=== PATIENT | female | born 1950 | race Caucasian/White ===

== ENCOUNTER → 2018-05-29 | Day surgery (SDC) | payer MEDICARE ==
[2018-05-27 13:16] LABS: BASOPHILS # (AUTO) 0.1 (0.0-0.1); BASOPHILS % 0.8 % (0.0-1.0); EOSINOPHILS # (AUTO) 0.3 (0.0-0.4); EOSINOPHILS % 3.9 % (0.0-6.0); HEMATOCRIT 38.6 % (34.2-44.1); HEMOGLOBIN 12.7 g/dL (12.0-16.0); LYMPHOCYTES # (AUTO) 2.6 (1.0-3.2); LYMPHOCYTES % 31.4 % (18.0-39.1); MEAN CORPUSCULAR HEMOGLOBIN 34.6 pg (28-32); MEAN CORPUSCULAR HGB CONC 32.9 g/dL (31-35); MEAN CORPUSCULAR VOLUME 105.2 fL (81-99); MONOCYTES # (AUTO) 0.5 (0.2-0.8); MONOCYTES % 6.2 % (4.4-11.3); NEUTROPHILS # (AUTO) 4.8 (2.1-6.9); NEUTROPHILS % 57.2 % (38.7-80.0); PLATELET COUNT 185 x10e3/uL (140-360); RED BLOOD COUNT 3.67 x10e6/uL (3.6-5.1); RED CELL DISTRIBUTION WIDTH 13.3 % (11.7-14.4)
[~2018-05-29] MED LIST: AMLODIPINE BESYL5 MG PO; ATENOLOL50 MG PO; BYSTOLIC10 MG PO; FENTANYL CITRATE/PF 100MCG/2 ML INJ ONE; FOLIC ACID1 MG PO; GLYCOPYRROLATE INJ 1MG/ 5 ML SYR ONE; LEVOTHYROXINE112 MCG PO; LISINOPRIL-HCT1 EAC2 PO; LOVASTATIN10 MG PO; METHOTREXATE2.5 MG PO; MIDAZOLAM HCL 2 MG/2 ML VIAL ONE; PANTOPRAZOLE SO40 MG PO; PHENYLEPHRINE HCL 1% 10 MG/ML VIAL ONE; PROPOFOL IV EMULSION 10 MG/ML 20 ML VIAL ONE; SPIRONOLACTONE25 MG PO; XARELTO20 MG PO
[2018-05-29 09:35] VITALS: BP 115/67
== END | disposition home or self-care (01) ==
LOC: OR 06:15
PROVIDERS: ATTEND Internal Medicine Gastroenterology
DX: Z12.11 Encounter for screening for malignant neoplasm of colon (principal); D12.2 Benign neoplasm of ascending colon; K29.70 Gastritis, unspecified, without bleeding; K29.80 Duodenitis without bleeding; K52.9 Noninfective gastroenteritis and colitis, unspecified; K21.0 Gastro-esophageal reflux disease with esophagitis; K57.30 Diverticulosis of large intestine without perforation or abscess without bleeding; K64.4 Residual hemorrhoidal skin tags; Z71.3 Dietary counseling and surveillance; I10 Essential (primary) hypertension; E66.01 Morbid (severe) obesity due to excess calories; M06.9 Rheumatoid arthritis, unspecified; E78.6 Lipoprotein deficiency; E03.9 Hypothyroidism, unspecified; R60.9 Edema, unspecified; R00.1 Bradycardia, unspecified; Z88.0 Allergy status to penicillin; Z79.02 Long term (current) use of antithrombotics/antiplatelets; Z68.42 Body mass index [BMI] 45.0-49.9, adult; Z86.718 Personal history of other venous thrombosis and embolism
CPT/HCPCS: 36415; 43239; 45380; 45385; 85025; 88305; 88312; 93005; J2250; J2370; J3490

== ENCOUNTER 2019-06-16 19:03 | Emergency (ER) | payer MEDICARE ==
[~2019-06-16] VITALS: Ht 149.9 cm; Wt 96.2 kg
[~2019-06-16 19:03] MED LIST changes: -FENTANYL CITRATE/PF 100MCG/2 ML INJ ONE; -GLYCOPYRROLATE INJ 1MG/ 5 ML SYR ONE; -MIDAZOLAM HCL 2 MG/2 ML VIAL ONE; -PHENYLEPHRINE HCL 1% 10 MG/ML VIAL ONE; -PROPOFOL IV EMULSION 10 MG/ML 20 ML VIAL ONE
--- OUTSIDE RECORDS SUMMARY | 2019-06-16 19:07 | XMS REPORT | Continuity of Care Document ---
Author Author [place] Address Unknown Phone Unavailable Care Team Providers Care Service Delivery Management Consultant Name Role Phone [employer] Unavailable Unavailable Problems Problem Status Onset Date Classification Date Reported Comments Source ACUTE RENAL FAILURE, HYPERKALEMIA Active 01/30/[address] [facility] [address] SENT/ ABNORMAL LABS Active 01/30/2014 [facility] Hypertensive disorder, systemic arterial (disorder) Resolved Problem 02/04/2014 [facility] Lupus erythematosus (disorder) Resolved Problem 02/04/2014 [facility] RENAL FAILURE NOS Active [facility] Medications Medication Details Route Status Patient Instructions Ordering Provider Order Date Source Magnesium Sulfate 2 gm, 50 mL, Route: IVPB, Drug form: INJ, ONCE, Dosing Weight 101.591, kg, Start date: 02/01/14 12:52:00, Stop date: 02/01/14 12:52:00 Inactive 02/01/2014 [facility] Folic Acid 1 mg, 1 tab, Route: PO, Drug form: TAB, Daily, Dosing Weight 101.591, kg, Start date: 02/01/14 9:00:00, Duration: 30 day, Stop date: 03/02/14 9:00:00Notes: (Same as: Folvite) No Longer Active 02/01/2014 [facility] Celebrex 200 mg, 1 cap, Route: PO, Drug form: CAP, Daily, Dosing Weight 101.591, kg, Start date: 02/01/14 9:00:00, Duration: 30 day, Stop date: 03/02/14 9:00:00Notes: NSAID. Please check indication. Not for seizure. (Same As: CeleBREX) No Longer Active 02/01/2014 [facility] Thyroxine 125 microgram, 1 tab, Route: PO, Drug form: TAB, Daily, Dosing Weight 101.591, kg, Start date: 02/01/14 6:30:00, Duration: 30 day, Stop date: 03/02/14 6:30:00Notes: Take 1 hour before or 2 hours after meal; Enteral feeds may interefere with the absorption of this medication. (Same as:Levothroid) No Longer Active 02/01/2014 [facility] gabapentin 300 MG Oral Capsule 300 mg, 1 cap, Route: PO, Drug form: CAP, Bedtime, Dosing Weight 101.591, kg, Start date: 01/31/14 21:00:00, Duration: 30 day, Stop date: 03/01/14 21:00:00Notes: (Same as: Neurontin) No Longer Active 02/01/2014 [facility] Carisoprodol 350 mg, Route: PO, Drug form: TAB, Bedtime, Dosing Weight 101.591, kg, Start date: 01/31/14 21:00:00, Duration: 30 day, Stop date: 03/01/14 21:00:00 Inactive 02/01/2014 [facility] Robaxin 750 mg, 1 tab, Route: PO, Drug form: TAB, Bedtime, Start date: 01/31/14 21:00:00, Duration: 30 day, Stop date: 03/01/14 21:00:00Notes: (Same as:Robaxin) No Longer Active 02/01/2014 [facility] Atropine 0.5 mg, 5 mL, Route: IV, Drug form: INJ, PRN, Dosing Weight 101.591, kg, PRN Bradycardia, Start date: 01/31/14 19:18:00, Duration: 30 day, Stop date: 03/02/14 19:17:00, HR No Longer Active 02/01/2014 [facility] Nitroglycerin 0.4 mg, 1 tab, Route: SL, Drug form: TAB, Q5Min, Dosing Weight 101.591, kg, PRN Chest Pain, Start date: 01/31/14 19:17:00, Duration: 30 day, Stop date: 03/02/14 19:16:00Notes: (Same as:Nitroquick, Nitrostat) "Do Not Crush" Sublingual tablet No Longer Active 02/01/2014 [facility] pantoprazole 40 mg, 1 tab, Route: PO, Drug form: ECTAB, BID-Before Meals, Dosing Weight 101.591, kg, Start date: 01/31/14 16:30:00, Duration: 30 day, Stop date: 03/02/14 7:30:00Notes: Tablet should not be chewed or crushed. (Same as: Protonix) No Longer Active 01/31/2014 [facility] Saline Flush 0.9% 5 ml, Route: IVP, Drug Form: INJ, Dosing Weight 100, kg, PRN, PRN Line Flush, Start date: 01/30/14 20:59:00, Duration: 30 day, Stop date: 03/01/14 20:58:00Notes: (Same as: BD Posiflush) No Longer Active 01/31/2014 [facility] Acetaminophen 650 mg, 20.3 mL, Route: PO, Drug form: LIQ, Q4H, Dosing Weight 100, kg, PRN Pain 1-3/Temp > 100.4 F, Start date: 01/30/14 20:59:00, Duration: 30 day, Stop date: 03/01/14 20:58:00Notes: Max acetaminop xll=4039cs/day (4 gm/day). (Same as: Tylenol) No Longer Active 01/31/2014 [facility] Sodium Chloride 0.154 MEQ/ML Injectable Solution 1,000 mL, Rate: 100 ml/hr, Infuse over: 10 hr, Route: IV, Dosing Weight 100 kg, Total Volume: 1,000, Start date: 01/30/14 20:59:00, Duration: 30 day, Stop date: 03/01/14 20:58:00 No Longer Active 01/31/2014 [facility] Ondansetron 4 mg, 2 mL, Route: IVP, Drug form: INJ, Q8H, Dosing Weight 100, kg, PRN Nausea & Vomiting, Start date: 01/30/14 20:59:00, Duration: 30 day, Stop date: 03/01/14 20:58:00Notes: (Same as: Zofran) No Longer Active 01/31/2014 [facility] spironolactone 25 mg oral tablet 25 mg=1 tab, PO, Daily No Longer Active 01/31/2014 [facility] celecoxib 200 MG Oral Capsule [Celebrex] 200 mg=1 cap, PO, Daily Active 01/30/2014 [facility] gabapentin 300 MG Oral Capsule 300 mg=1 cap, PO, Bedtime Active 01/30/2014 [facility] levocetirizine 5 mg oral tablet 5 mg=1 tab, PO, QPM Active 01/30/2014 [facility] Calcium 600 +D oral tablet 1 tab, PO, BID Active 01/30/2014 [facility] Potassium Chloride 20 MEQ Extended Release Tablet 20 mEq=1 tab, PO, Q--- No Longer Active 01/30/2014 [facility] carisoprodol 350 mg oral tablet 350 mg=1 tab, PO, Bedtime Active 01/30/2014 [facility] lovastatin 20 mg oral tablet 20 mg=1 tab, PO, Bedtime Active 01/30/2014 [facility] Furosemide 40 MG Oral Tablet 40 mg=1 tab, PO, Q-- No Longer Active 01/30/2014 [facility] pantoprazole 40 mg oral enteric coated tablet 40 mg=1 tab, PO, BID Active 01/30/2014 [facility] Folic Acid 1 MG Oral Tablet 1 mg=1 tab, PO, Daily Active 01/30/2014 [facility] levothyroxine 125 mcg (0.125 mg) oral tablet 125 microgram=1 tab, PO, Daily Active 01/30/2014 [facility] Hydrochlorothiazide 12.5 MG / Lisinopril 20 MG Oral Tablet 2 tab, PO, Daily No Longer Active 01/30/2014 [facility] methotrexate 2.5 mg oral tablet 20 mg=8 tab, PO, QSun Active 01/30/2014 [facility] Sodium Bicarbonate 50 mEq, Route: IVP, ONCE, Dosing Weight 100, kg, Priority: STAT, Start date: 01/30/14 18:24:00, Stop date: 01/30/14 18:24:00 Inactive 01/30/2014 [facility] Insulin, Regular, Pork 10 unit, Route: IVP, ONCE, Dosing Weight 100, kg, Priority: STAT, Start date: 01/30/14 18:24:00, Stop date: 01/30/14 18:24:00 Inactive 01/30/2014 [facility] Dextrose 50% Syringe 50 mL, Route: IVP, Dosing Weight 100, kg, ONCE, STAT, Start date: 01/30/14 18:24:00, Stop date: 01/30/14 18:24:00 Inactive 01/30/2014 [facility] Calcium Gluconate 1 gm, Route: IVPB, ONCE, Dosing Weight 100, kg, Priority: STAT, Start date: 01/30/14 18:24:00, Stop date: 01/30/14 18:24:00 Inactive 01/30/2014 [facility] Sodium Chloride 0.154 MEQ/ML Injectable Solution 500 mL, 500 ml/hr, Infuse Over: 1 hr, Route: IV, ONCE, Priority: STAT, Dosing Weight 100 kg, Start date: 01/30/14 18:24:00, Duration: 1 doses or times, Stop date: 01/30/14 18:24:00 Inactive 01/30/2014 [facility] Saline Flush 0.9% 5 mL, Route: IVP, Drug Form: INJ, Dosing Weight 100, kg, PRN, PRN Line Flush, Start date: 01/30/14 18:24:00, Duration: 30 day, Stop date: 03/01/14 18:23:00Notes: Same as: BD Posiflush Sterile Inactive 01/30/2014 [facility] Sodium Chloride 0.154 MEQ/ML Injectable Solution 500 mL, 500 ml/hr, Infuse Over: 1 hr, Route: IV, 500, Drug form: INJ, ONCE, Priority: STAT, Dosing Weight 100 kg, Start date: 01/30/14 17:33:00, Duration: 1 doses or times, Stop date: 01/30/14 17:33:00 Inactive 01/30/2014 [facility] Allergies, Adverse Reactions, Alerts No Known Medication Allergies Immunizations No Data Provided for This Section Results Order Name Results Value Reference Range Date Interpretation Comments [facility] CHEM PANEL Magnesium Lvl 1.9 1.8 - 2.4 02/02/2014 [facility] CHEM PANEL BUN 19 7 - 22 02/02/2014 [facility] CHEM PANEL Glucose Lvl 102 70 - 99 02/02/2014 <sup>4</sup>Interpretive Data: Adult reference range values reflect the clinical guidelines
of the [place] [employer]. [facility] CHEM PANEL Creatinine Lvl 1.0 0.5 - 1.4 02/02/2014 [facility] CHEM PANEL Potassium Lvl 4.1 3.5 - 5.1 02/02/2014 [facility] CHEM PANEL Sodium Lvl 140 135 - 145 02/02/2014 [facility] CHEM PANEL Chloride Lvl 112 95 - 109 02/02/2014 [facility] CHEM PANEL CO2 20 24 - 32 02/02/2014 [facility] CHEM PANEL eGFR 61 02/02/2014 <sup>1</sup>Result Comment: The eGFR is calculated using the CKD-EPI formula. In most young, healthy individuals the eGFR will be >90 mL/min/1.73m2. The eGFR declines with age. An eGFR of 60-89 may be normal in some populations, particularly the elderly, for whom the CKD-EPI formula has not been extensively validated. Use of the eGFR is not recommended in the following populations:& lt;br/>
Individuals with unstable creatinine concentrations, including patients and those with serious co-morbid conditions.

Patients with extremes in muscle mass or diet.

The data above are obtained from the National Kidney Disease Education Program (NKDEP) which additionally recommends that when the eGFR is used in patients with extremes of body mass index for purposes of drug dosing, the eGFR should be multiplied by the estimated BMI. [facility] CHEM PANEL Calcium Lvl 8.2 8.5 - 10.5 02/02/2014 [facility] CHEM PANEL AGAP 12.1 10.0 - 20.0 02/02/2014 [facility] CHEM PANEL Magnesium Lvl 1.5 1.8 - 2.4 02/01/2014 [facility] CHEM PANEL eGFR 54 02/01/2014 <sup>2</sup>Result Comment: The eGFR is calculated using the CKD-EPI formula. In most young, healthy individuals the eGFR will be >90 mL/min/1.73m2. The eGFR declines with age. An eGFR of 60-89 may be normal in some populations, particularly the elderly, for whom the CKD-EPI formula has not been extensively validated. Use of the eGFR is not recommended in the following populations:& lt;br/>
Individuals with unstable creatinine concentrations, including patients and those with serious co-morbid conditions.

Patients with extremes in muscle mass or diet.

The data above are obtained from the National Kidney Disease Education Program (NKDEP) which additionally recommends that when the eGFR is used in patients with extremes of body mass index for purposes of drug dosing, the eGFR should be multiplied by the estimated BMI. [facility] CHEM PANEL AGAP 11.9 10.0 - 20.0 02/01/2014 [facility] CHEM PANEL Calcium Lvl 8.2 8.5 - 10.5 02/01/2014 [facility] CHEM PANEL Creatinine Lvl 1.1 0.5 - 1.4 02/01/2014 [facility] CHEM PANEL BUN 32 7 - 22 02/01/2014 [facility] CHEM PANEL Sodium Lvl 140 135 - 145 02/01/2014 [facility] CHEM PANEL Chloride Lvl 114 95 - 109 02/01/2014 [facility] CHEM PANEL CO2 19 24 - 32 02/01/2014 [facility] CHEM PANEL Glucose Lvl 98 70 - 99 02/01/2014 <sup>5</sup>Interpretive Data: Adult reference range values reflect the clinical guidelines
of the [place] [employer]. [facility] CHEM PANEL Potassium Lvl 4.9 3.5 - 5.1 02/01/2014 [facility] HEMATOLOGY Monocytes 5.5 2.0 - 12.0 02/01/2014 [facility] HEMATOLOGY Lymphocytes 24.3 20.0 - 40.0 02/01/2014 [facility] HEMATOLOGY Eosinophils 5.5 0.0 - 4.0 02/01/2014 [facility] HEMATOLOGY Basophils 1.4 0.0 - 1.0 02/01/2014 [facility] HEMATOLOGY Lymphocytes # 1.4 1.0 - 5.5 02/01/2014 [facility] HEMATOLOGY Segs-Bands # 3.6 1.5 - 8.1 02/01/2014 [facility] HEMATOLOGY Monocytes # 0.3 0.0 - 0.8 02/01/2014 [facility] HEMATOLOGY Basophils # 0.1 0.0 - 0.2 02/01/2014 [facility] HEMATOLOGY Eosinophils # 0.3 0.0 - 0.5 02/01/2014 [facility] HEMATOLOGY Segs 63.3 45.0 - 75.0 02/01/2014 [facility] HEMATOLOGY WBC 5.7 3.7 - 10.4 02/01/2014 [facility] HEMATOLOGY RBC 2.95 4.20 - 5.40 02/01/2014 [facility] HEMATOLOGY Hgb 10.1 12.0 - 16.0 02/01/2014 [facility] HEMATOLOGY MCV 101.3 81.0 - 99.0 02/01/2014 [facility] HEMATOLOGY MCH 34.2 27.0 - 31.0 02/01/2014 [facility] HEMATOLOGY Hct 29.8 36.0 - 48.0 02/01/2014 [facility] MCHC 33.8 32.0 - 36.0 02/01/2014 [facility] HEMATOLOGY RDW 14.0 11.5 - 14.5 02/01/2014 [facility] HEMATOLOGY MPV 9.3 7.4 - 10.4 02/01/2014 [facility] HEMATOLOGY Platelet 122 133 - 450 02/01/2014 [facility] THYROID PANEL TSH 0.090 0.360 - 3.740 02/01/2014 [facility] CHEM PANEL Phosphorus 4.6 2.5 - 4.5 01/31/2014 [facility] CHEM PANEL Magnesium Lvl 1.8 1.8 - 2.4 01/31/2014 [facility] CHEM PANEL Creatinine Lvl 1.5 0.5 - 1.4 01/31/2014 [facility] CHEM PANEL Sodium Lvl 142 135 - 145 01/31/2014 [facility] CHEM PANEL Potassium Lvl 5.5 3.5 - 5.1 01/31/2014 [facility] CHEM PANEL Chloride Lvl 114 95 - 109 01/31/2014 [facility] CHEM PANEL CO2 17 24 - 32 01/31/2014 [facility] CHEM PANEL Glucose Lvl 104 70 - 99 01/31/2014 <sup>6</sup>Interpretive Data: Adult reference range values reflect the clinical guidelines
of the [place] [employer]. [facility] CHEM PANEL BUN 52 7 - 22 01/31/2014 [facility] CHEM PANEL Calcium Lvl 8.8 8.5 - 10.5 01/31/2014 [facility] CHEM PANEL eGFR 37 01/31/2014 <sup>3</sup>Result Comment: The eGFR is calculated using the CKD-EPI formula. In most young, healthy individuals the eGFR will be >90 mL/min/1.73m2. The eGFR declines with age. An eGFR of 60-89 may be normal in some populations, particularly the elderly, for whom the CKD-EPI formula has not been extensively validated. Use of the eGFR is not recommended in the following populations:& lt;br/>
Individuals with unstable creatinine concentrations, including patients and those with serious co-morbid conditions.

Patients with extremes in muscle mass or diet.

The data above are obtained from the National Kid[employer] Disease Education Program (NKDEP) which additionally recommends that when the eGFR is used in patients with extremes of body mass index for purposes of drug dosing, the eGFR should be multiplied by the estimated BMI. [facility] CHEM PANEL AGAP 16.5 10.0 - 20.0 01/31/2014 [facility] HEMATOLOGY MCV 103.7 81.0 - 99.0 01/31/2014 [facility] HEMATOLOGY Hct 33.2 36.0 - 48.0 01/31/2014 [facility] MCHC 33.4 32.0 - 36.0 01/31/2014 [facility] MCH 34.7 27.0 - 31.0 01/31/2014 [facility] HEMATOLOGY RBC 3.21 4.20 - 5.40 01/31/2014 [facility] HEMATOLOGY Hgb 11.1 12.0 - 16.0 01/31/2014 [facility] HEMATOLOGY WBC 6.1 3.7 - 10.4 01/31/2014 [facility] HEMATOLOGY MPV 8.7 7.4 - 10.4 01/31/2014 [facility] HEMATOLOGY Platelet 178 133 - 450 01/31/2014 [facility] HEMATOLOGY RDW 14.7 11.5 - 14.5 01/31/2014 [facility] HEMATOLOGY Lymphocytes 26.2 20.0 - 40.0 01/31/2014 [facility] HEMATOLOGY Segs 62.9 45.0 - 75.0 01/31/2014 [facility] HEMATOLOGY Monocytes 5.8 2.0 - 12.0 01/31/2014 [facility] HEMATOLOGY Basophils 0.8 0.0 - 1.0 01/31/2014 [facility] HEMATOLOGY Eosinophils 4.3 0.0 - 4.0 01/31/2014 [facility] HEMATOLOGY Monocytes # 0.4 0.0 - 0.8 01/31/2014 [facility] HEMATOLOGY Lymphocytes # 1.6 1.0 - 5.5 01/31/2014 [facility] HEMATOLOGY Segs-Bands # 3.8 1.5 - 8.1 01/31/2014 [facility] HEMATOLOGY Eosinophils # 0.3 0.0 - 0.5 01/31/2014 [facility] HEMATOLOGY Basophils # 0.0 0.0 - 0.2 01/31/2014 [facility] URINE AND STOOL UA Urobilinogen <=1.0 mg/dL 0.1 - 1.0 01/31/2014 [facility] URINE AND STOOL UA Color Ltyellow 01/31/2014 [facility] URINE AND STOOL UA WBC 2 0 - 5 01/31/2014 [facility] URINE AND STOOL UA Sq Epi Occasional /LPF Few /LPF 01/31/2014 [facility] URINE AND STOOL UA Bacteria Occasional /HPF None Seen /HPF 01/31/2014 [facility] URINE AND STOOL UA RBC 1 0 - 2 01/31/2014 [facility] URINE AND STOOL UA Bili Negative *NA* (01/30/14 7:15 PM) Negative 01/31/2014 [facility] URINE AND STOOL UA Blood Negative (01/30/14 7:15 PM) Negative 01/31/2014 [facility] URINE AND STOOL UA Nitrite Negative (01/30/14 7:15 PM) Negative 01/31/2014 [facility] URINE AND STOOL UA Leuk Est Trace *ABN* (01/30/14 7:15 PM) Negative 01/31/2014 [facility] URINE AND STOOL UA Turbidity Clear (01/30/14 7:15 PM) Clear 01/31/2014 [facility] URINE AND STOOL UA pH 5.0 5.0 - 8.0 01/31/2014 [facility] URINE AND STOOL UA Spec Grav 1.014 <=1.030 01/31/2014 [facility] URINE AND STOOL UA Protein Negative mg/dL Negative mg/dL 01/31/2014 [facility] URINE AND STOOL UA Glucose 50 mg/dL Negative mg/dL 01/31/2014 [facility] URINE AND STOOL UA Ketones Negative mg/dL Negative mg/dL 01/31/2014 [facility] CHEM PANEL Bili Total 0.2 0.2 - 1.3 01/30/2014 [facility] CHEM PANEL AST 14 0 - 37 01/30/2014 [facility] CHEM PANEL ALT 23 0 - 65 01/30/2014 [facility] CHEM PANEL Alk Phos 75 39 - 136 01/30/2014 [facility] CHEM PANEL Total Protein 7.7 6.4 - 8.4 01/30/2014 [facility] CHEM PANEL Albumin Lvl 3.7 3.5 - 5.0 01/30/2014 [facility] CHEM PANEL A/G Ratio 0.9 0.7 - 1.6 01/30/2014 [facility] CHEM PANEL Globulin 4.0 2.0 - 4.0 01/30/2014 [facility] CHEM PANEL B/C Ratio 29 6 - 25 01/30/2014 [facility] HEMATOLOGY Basophils 0.7 0.0 - 1.0 01/30/2014 [facility] HEMATOLOGY Segs-Bands # 5.2 1.5 - 8.1 01/30/2014 [facility] HEMATOLOGY Basophils # 0.1 0.0 - 0.2 01/30/2014 [facility] HEMATOLOGY Eosinophils 5.4 0.0 - 4.0 01/30/2014 [facility] HEMATOLOGY Lymphocytes # 1.7 1.0 - 5.5 01/30/2014 [facility] HEMATOLOGY Monocytes # 0.5 0.0 - 0.8 01/30/2014 [facility] HEMATOLOGY Eosinophils # 0.4 0.0 - 0.5 01/30/2014 [facility] HEMATOLOGY Segs 66.1 45.0 - 75.0 01/30/2014 [facility] HEMATOLOGY Monocytes 6.3 2.0 - 12.0 01/30/2014 [facility] HEMATOLOGY Lymphocytes 21.5 20.0 - 40.0 01/30/2014 [facility] HEMATOLOGY MCH 34.0 27.0 - 31.0 01/30/2014 [facility] HEMATOLOGY MCHC 33.6 32.0 - 36.0 01/30/2014 [facility] HEMATOLOGY MCV 101.0 81.0 - 99.0 01/30/2014 [facility] HEMATOLOGY Hgb 12.1 12.0 - 16.0 01/30/2014 [facility] Hct 36.1 36.0 - 48.0 01/30/2014 [facility] HEMATOLOGY MPV 8.7 7.4 - 10.4 01/30/2014 [facility] HEMATOLOGY Platelet 266 133 - 450 01/30/2014 [facility] HEMATOLOGY RDW 14.1 11.5 - 14.5 01/30/2014 [facility] HEMATOLOGY WBC 7.8 3.7 - 10.4 01/30/2014 [facility] RBC 3.57 4.20 - 5.40 01/30/2014 [facility] Pathology Reports No Data Provided for This Section Diagnostic Reports No Data Provided for This Section Consultation Notes No Data Provided for This Section Discharge Summaries No Data Provided for This Section History and Physicals No Data Provided for This Section Vital Signs Vital Sign Value Date Comments Source Diastolic (mm Hg) 81 02/02/2014 [facility] Systolic (mm Hg) 162 02/02/2014 [facility] Respitory Rate 18 02/02/2014 [facility] Heart Rate 79 02/02/2014 [facility] Temperature Oral (F) 98.2 F 02/02/2014 [facility] Temperature Oral (F) 98.3 F 02/02/2014 [facility] Heart Rate 74 02/02/2014 [facility] Respitory Rate 17 02/02/2014 [facility] Systolic (mm Hg) 137 02/02/2014 [facility] Diastolic (mm Hg) 65 02/02/2014 [facility] Respitory Rate 18 02/02/2014 [facility] Systolic (mm Hg) 120 02/02/2014 [facility] Heart Rate 66 02/02/2014 [facility] Diastolic (mm Hg) 64 02/02/2014 [facility] Temperature Oral (F) 98.8 F 02/02/2014 [facility] Height 147.32 cm 01/31/2014 [facility] Weight 101.591 01/31/2014 [facility] BMI Calculated 46.81 01/31/2014 [facility] Weight 100 01/30/2014 [facility] Height 147.32 cm 01/30/2014 [facility] BMI Calculated 46.08 01/30/2014 [facility] Encounters Location Location Details Encounter Type Encounter Number Reason For Visit Attending Provider ADM Date DC Date Status Source [facility] Inpatient [id number] Bola Lewism 01/30/2014 02/02/2014 [facility] Procedures No Data Provided for This Section Assessment and Plan No Data Provided for This Section Plan of Care No Data Provided for This Section Social History Social History Date Source Social History TypeResponse Alcohol Use: Never Smoking Status Light tobacco smoker, Exposure to Tobacco Smoke None, Cigarette Smoking Last 365 Days No, Reg Smoking Cessation Counseling No 01/31/2014 [facility] Family History No Data Provided for This Section Advance Directives No Data Provided for This Section Functional Status No Data Provided for This Section
--- OUTSIDE RECORDS SUMMARY | 2019-06-16 19:07 | XMS REPORT | Summary of Care ---
Author Organization Unknown Address Unknown Phone Unavailable Encounter HQ Elise(NILSON) [id number] Date(s): 01/30/14 - 02/02/14 [facility] [address] [address] Discharge Disposition: Home Physician Attending: Bola Waldron MD Physician Admitting: Bola Waldron MD Reason for Visit ACUTE RENAL FAILURE, HYPERKALEMIA Vital Signs 1 2 3 Most recent to oldest [Reference Range]: 147.32 cm (01/30/14 9:00 PM) 147.32 cm (01/30/14 3:06 PM) Height 98.2 DegF (02/02/14 11:10 AM) 98.3 DegF (02/02/14 7:11 AM) 98.8 DegF (02/02/14 5:21 AM) Temperature Oral [96.4-99.1 DegF] 162 mmHg *HI* (02/02/14 11:10 AM) 137 mmHg (02/02/14 7:11 AM) 120 mmHg (02/02/14 5:21 AM) Systolic Blood Pressure [90-140 mmHg] 81 mmHg (02/02/14 11:10 AM) 65 mmHg (02/02/14 7:11 AM) 64 mmHg (02/02/14 5:21 AM) Diastolic Blood Pressure [60-90 mmHg] 18 BRMIN (02/02/14 11:10 AM) 17 BRMIN (02/02/14 7:11 AM) 18 BRMIN (02/02/14 5:21 AM) Respiratory Rate [14-20 BRMIN] 79 bpm (02/02/14 11:10 AM) 74 bpm (02/02/14 7:11 AM) 66 bpm (02/02/14 5:21 AM) Peripheral Pulse Rate [60-100 bpm] 101.591 kg (01/30/14 9:00 PM) 100 kg (01/30/14 3:06 PM) Weight 46.81 m2 (01/30/14 9:00 PM) 46.08 m2 (01/30/14 3:06 PM) Body Mass Index Problem List Condition Effective Dates Status Health Status Informant Hypertension(Confirm Resolved ed) Lupus(Confirmed) Resolved Allergies, Adverse Reactions, Alerts Substance Reaction Severity Status NKDA Active Medications acetaminophen 650 mg, 20.3 mL, Route: PO, Drug form: LIQ, Q4H, Dosing Weight 100, kg, PRN Pain 1-3/Temp > 100.4 F, Start date: 01/30/14 20:59:00, Duration: 30 day, Stop date: 03/01/14 20:58:00 Notes: Max ndlpfmxievhrb=7834xz/day (4 gm/day). (Same as: Tylenol) Start Date: 01/30/14 Stop Date: 02/02/14 Status: Discontinued atropine 0.5 mg, 5 mL, Route: IV, Drug form: INJ, PRN, Dosing Weight 101.591, kg, PRN Bra dycardia, Start date: 01/31/14 19:18:00, Duration: 30 day, Stop date: 03/02/14 1 9:17:00, HR <40 Start Date: 01/31/14 Stop Date: 02/02/14 Status: Discontinued Calcium 600 +D oral tablet 1 tab, PO, BID Start Date: 01/30/14 Status: Ordered calcium gluconate 1 gm, Route: IVPB, ONCE, Dosing Weight 100, kg, Priority: STAT, Start date: 01/07 02/18 18:24:00, Stop date: 01/30/14 18:24:00 Start Date: 01/30/14 Stop Date: 01/30/14 Status: Completed carisoprodol 350 mg, Route: PO, Drug form: TAB, Bedtime, Dosing Weight 101.591, kg, Start roya e: 01/31/14 21:00:00, Duration: 30 day, Stop date: 03/01/14 21:00:00 Start Date: 01/31/14 Stop Date: 01/31/14 Status: Deleted carisoprodol 350 mg oral tablet 350 mg=1 tab, PO, Bedtime Start Date: 01/30/14 Status: Ordered CeleBREX 200 mg, 1 cap, Route: PO, Drug form: CAP, Daily, Dosing Weight 101.591, kg, Star t date: 02/01/14 9:00:00, Duration: 30 day, Stop date: 03/02/14 9:00:00 Notes: NSAID. Please check indication. Not for seizure. (Same As: CeleBREX) Start Date: 02/01/14 Stop Date: 02/02/14 Status: Discontinued CeleBREX 200 mg oral capsule 200 mg=1 cap, PO, Daily Start Date: 01/30/14 Status: Ordered Dextrose 50% Syringe 50 mL, Route: IVP, Dosing Weight 100, kg, ONCE, STAT, Start date: 01/30/14 18:24 :00, Stop date: 01/30/14 18:24:00 Start Date: 01/30/14 Stop Date: 01/30/14 Status: Completed folic acid 1 mg, 1 tab, Route: PO, Drug form: TAB, Daily, Dosing Weight 101.591, kg, Start date: 02/01/14 9:00:00, Duration: 30 day, Stop date: 03/02/14 9:00:00 Notes: (Same as: Folvite) Start Date: 02/01/14 Stop Date: 02/02/14 Status: Discontinued folic acid 1 mg oral tablet 1 mg=1 tab, PO, Daily Start Date: 01/30/14 Status: Ordered furosemide 40 mg oral tablet 40 mg=1 tab, PO, Q-M-W-F Start Date: 01/30/14 Stop Date: 02/02/14 Status: Discontinued gabapentin 300 mg oral capsule 300 mg=1 cap, PO, Bedtime Start Date: 01/30/14 Status: Ordered gabapentin 300 mg oral capsule 300 mg, 1 cap, Route: PO, Drug form: CAP, Bedtime, Dosing Weight 101.591, kg, St art date: 01/31/14 21:00:00, Duration: 30 day, Stop date: 03/01/14 21:00:00 Notes: (Same as: Neurontin) Start Date: 01/31/14 Stop Date: 02/02/14 Status: Discontinued hydrochlorothiazide-lisinopril 12.5 mg-20 mg oral tablet 2 tab, PO, Daily Start Date: 01/30/14 Stop Date: 02/02/14 Status: Discontinued Insulin regular 10 unit, Route: IVP, ONCE, Dosing Weight 100, kg, Priority: STAT, Start date: 18:24:00, Stop date: 01/30/14 18:24:00 Start Date: 01/30/14 Stop Date: 01/30/14 Status: Completed levocetirizine 5 mg oral tablet 5 mg=1 tab, PO, QPM Start Date: 01/30/14 Status: Ordered levothyroxine 125 microgram, 1 tab, Route: PO, Drug form: TAB, Daily, Dosing Weight 101.591, k g, Start date: 02/01/14 6:30:00, Duration: 30 day, Stop date: 03/02/14 6:30:00 Notes: Take 1 hour before or 2 hours after meal; Enteral feeds may interefere wi th the absorption of this medication. (Same as:Levothroid) Start Date: 02/01/14 Stop Date: 02/02/14 Status: Discontinued levothyroxine 125 mcg (0.125 mg) oral tablet 125 microgram=1 tab, PO, Daily Start Date: 01/30/14 Status: Ordered lovastatin 20 mg oral tablet 20 mg=1 tab, PO, Bedtime Start Date: 01/30/14 Status: Ordered magnesium sulfate 2 gm, 50 mL, Route: IVPB, Drug form: INJ, ONCE, Dosing Weight 101.591, kg, Start date: 02/01/14 12:52:00, Stop date: 02/01/14 12:52:00 Start Date: 02/01/14 Stop Date: 02/01/14 Status: Completed methotrexate 2.5 mg oral tablet 20 mg=8 tab, PO, QSun Start Date: 01/30/14 Status: Ordered nitroglycerin 0.4 mg, 1 tab, Route: SL, Drug form: TAB, Q5Min, Dosing Weight 101.591, kg, PRN Chest Pain, Start date: 01/31/14 19:17:00, Duration: 30 day, Stop date: 03/02/14 19:16:00 Notes: (Same as:Nitroquick, Nitrostat)"Do Not Crush" Sublingual tablet Start Date: 01/31/14 Stop Date: 02/02/14 Status: Discontinued ondansetron 4 mg, 2 mL, Route: IVP, Drug form: INJ, Q8H, Dosing Weight 100, kg, PRN Nausea & Vomiting, Start date: 01/30/14 20:59:00, Duration: 30 day, Stop date: 03/01/14 20:58:00 Notes: (Same as: Zofran) Start Date: 01/30/14 Stop Date: 02/02/14 Status: Discontinued pantoprazole 40 mg, 1 tab, Route: PO, Drug form: ECTAB, BID-Before Meals, Dosing Weight 101.5 91, kg, Start date: 01/31/14 16:30:00, Duration: 30 day, Stop date: 03/02/14 7:3 0:00 Notes: Tablet should not be chewed or crushed.(Same as: Protonix) Start Date: 01/31/14 Stop Date: 02/02/14 Status: Discontinued pantoprazole 40 mg oral enteric coated tablet 40 mg=1 tab, PO, BID Start Date: 01/30/14 Status: Ordered potassium chloride 20 mEq oral tablet, extended release 20 mEq=1 tab, PO, Q-M-W-F Start Date: 01/30/14 Stop Date: 02/02/14 Status: Discontinued Robaxin 750 mg, 1 tab, Route: PO, Drug form: TAB, Bedtime, Start date: 01/31/14 21:00:00 , Duration: 30 day, Stop date: 03/01/14 21:00:00 Notes: (Same as:Robaxin) Start Date: 01/31/14 Stop Date: 02/02/14 Status: Discontinued Saline Flush 0.9% 5 mL, Route: IVP, Drug Form: INJ, Dosing Weight 100, kg, PRN, PRN Line Flush, St art date: 01/30/14 18:24:00, Duration: 30 day, Stop date: 03/01/14 18:23:00 Notes: Same as: BD Posiflush Sterile Start Date: 01/30/14 Stop Date: 01/30/14 Status: Discontinued Saline Flush 0.9% 5 ml, Route: IVP, Drug Form: INJ, Dosing Weight 100, kg, PRN, PRN Line Flush, St art date: 01/30/14 20:59:00, Duration: 30 day, Stop date: 03/01/14 20:58:00 Notes: (Same as: BD Posiflush) Start Date: 01/30/14 Stop Date: 02/02/14 Status: Discontinued sodium bicarbonate 50 mEq, Route: IVP, ONCE, Dosing Weight 100, kg, Priority: STAT, Start date: 18:24:00, Stop date: 01/30/14 18:24:00 Start Date: 01/30/14 Stop Date: 01/30/14 Status: Completed Sodium Chloride 0.9% (Bolus) IV - - 500 mL, 500 ml/hr, Infuse Over: 1 hr, Route: IV, 500, Drug form: INJ, ONCE, Prio rity: STAT, Dosing Weight 100 kg, Start date: 01/30/14 17:33:00, Duration: 1 dos es or times, Stop date: 01/30/14 17:33:00 Start Date: 01/30/14 Stop Date: 01/30/14 Status: Completed Sodium Chloride 0.9% IV (Sodium Chloride 0.9% (Bolus) IV - -) 500 mL, 500 ml/hr, Infuse Over: 1 hr, Route: IV, ONCE, Priority: STAT, Dosing We ight 100 kg, Start date: 01/30/14 18:24:00, Duration: 1 doses or times, Stop roya e: 01/30/14 18:24:00 Start Date: 01/30/14 Stop Date: 01/30/14 Status: Completed Sodium Chloride 0.9% IV 1,000 mL 1,000 mL, Rate: 100 ml/hr, Infuse over: 10 hr, Route: IV, Dosing Weight 100 kg, Total Volume: 1,000, Start date: 01/30/14 20:59:00, Duration: 30 day, Stop date: 03/01/14 20:58:00 Start Date: 01/30/14 Stop Date: 02/02/14 Status: Discontinued spironolactone 25 mg oral tablet 25 mg=1 tab, PO, Daily Start Date: 01/30/14 Stop Date: 02/02/14 Status: Discontinued Results ELECTROLYTES 1 2 3 Most recent to oldest [Reference Range]: 140 mEq/L (02/02/14 4:55 AM) 140 mEq/L (02/01/14 4:34 AM) 142 mEq/L (01/31/14 5:32 AM) Sodium Lvl [135-145 mEq/L] 4.1 mEq/L (02/02/14 4:55 AM) 4.9 mEq/L (02/01/14 4:34 AM) 5.5 mEq/L *HI* (01/31/14 5:32 AM) Potassium Lvl [3.5-5.1 mEq/L] 112 mEq/L *HI* (02/02/14 4:55 AM) 114 mEq/L *HI* (02/01/14 4:34 AM) 114 mEq/L *HI* (01/31/14 5:32 AM) Chloride Lvl [95-109 mEq/L] 20 mEq/L *LOW* (02/02/14 4:55 AM) 19 mEq/L *LOW* (02/01/14 4:34 AM) 17 mEq/L *LOW* (01/31/14 5:32 AM) CO2 [24-32 mEq/L] 12.1 mEq/L (02/02/14 4:55 AM) 11.9 mEq/L (02/01/14 4:34 AM) 16.5 mEq/L (01/31/14 5:32 AM) AGAP [10.0-20.0 mEq/L] CHEM PANEL 1 2 3 Most recent to oldest [Reference Range]: 1.0 mg/dL (02/02/14 4:55 AM) 1.1 mg/dL (02/01/14 4:34 AM) 1.5 mg/dL *HI* (01/31/14 5:32 AM) Creatinine Lvl [0.5-1.4 mg/dL] 61 mL/min/1.73m2 1 *NA* (02/02/14 4:55 AM) 54 mL/min/1.73m2 2 *NA* (02/01/14 4:34 AM) 37 mL/min/1.73m2 3 *NA* (01/31/14 5:32 AM) eGFR 19 mg/dL (02/02/14 4:55 AM) 32 mg/dL *HI* (02/01/14 4:34 AM) 52 mg/dL *HI* (01/31/14 5:32 AM) BUN [7-22 mg/dL] 29 *HI* (01/30/14 3:56 PM) B/C Ratio [6-25] 102 mg/dL 4 *HI* (02/02/14 4:55 AM) 98 mg/dL 5 (02/01/14 4:34 AM) 104 mg/dL 6 *HI* (01/31/14 5:32 AM) Glucose Lvl [70-99 mg/dL] 7.7 g/dL (01/30/14 3:56 PM) Total Protein [6.4-8.4 g/dL] 3.7 g/dL (01/30/14 3:56 PM) Albumin Lvl [3.5-5.0 g/dL] 4.0 g/dL (01/30/14 3:56 PM) Globulin [2.0-4.0 g/dL] 0.9 (01/30/14 3:56 PM) A/G Ratio [0.7-1.6] 8.2 mg/dL *LOW* (02/02/14 4:55 AM) 8.2 mg/dL *LOW* (02/01/14 4:34 AM) 8.8 mg/dL (01/31/14 5:32 AM) Calcium Lvl [8.5-10.5 mg/dL] 4.6 mg/dL *HI* (01/31/14 5:32 AM) Phosphorus [2.5-4.5 mg/dL] 1.9 mg/dL (02/02/14 4:55 AM) 1.5 mg/dL *LOW* (02/01/14 4:34 AM) 1.8 mg/dL (01/31/14 5:32 AM) Magnesium Lvl [1.8-2.4 mg/dL] 23 unit/L (01/30/14 3:56 PM) ALT [0-65 unit/L] 14 unit/L (01/30/14 3:56 PM) AST [0-37 unit/L] 75 unit/L (01/30/14 3:56 PM) Alk Phos [39-136 unit/L] 0.2 mg/dL (01/30/14 3:56 PM) Bili Total [0.2-1.3 mg/dL] 1Result Comment: The eGFR is calculated using the CKD-EPI formula. In most young, healthy individuals the eGFR will be >90 mL/min/1.73m2. The eGFR declines with age. An eGFR of 60-89 may be normal in some populations, particularly the elderly, for whom the CKD-EPI formula has not been extensively validated. Use of the eGFR is not recommended in the following populations: Individuals with unstable creatinine concentrations, including patients and those with serious co-morbid conditions. Patients with extremes in muscle mass or diet. The data above are obtained from the National Kidney Disease Education Program ( NKDEP) which additionally recommends that when the eGFR is used in patients with extremes of body mass index for purposes of drug dosing, the eGFR should be mul tiplied by the estimated BMI. 2Result Comment: The eGFR is calculated using the CKD-EPI formula. In most young, healthy individuals the eGFR will be >90 mL/min/1.73m2. The eGFR declines with age. An eGFR of 60-89 may be normal in some populations, particularly the elderly, for whom the CKD-EPI formula has not been extensively validated. Use of the eGFR is not recommended in the following populations: Individuals with unstable creatinine concentrations, including patients and those with serious co-morbid conditions. Patients with extremes in muscle mass or diet. The data above are obtained from the National Kidney Disease Education Program ( NKDEP) which additionally recommends that when the eGFR is used in patients with extremes of body mass index for purposes of drug dosing, the eGFR should be mul tiplied by the estimated BMI. 3Result Comment: The eGFR is calculated using the CKD-EPI formula. In most young, healthy individuals the eGFR will be >90 mL/min/1.73m2. The eGFR declines with age. An eGFR of 60-89 may be normal in some populations, particularly the elderly, for whom the CKD-EPI formula has not been extensively validated. Use of the eGFR is not recommended in the following populations: Individuals with unstable creatinine concentrations, including patients and those with serious co-morbid conditions. Patients with extremes in muscle mass or diet. The data above are obtained from the National Kidney Disease Education Program ( NKDEP) which additionally recommends that when the eGFR is used in patients with extremes of body mass index for purposes of drug dosing, the eGFR should be mul tiplied by the estimated BMI. 4Interpretive Data: Adult reference range values reflect the clinical guidelines of the [place] [employer]. 5Interpretive Data: Adult reference range values reflect the clinical guidelines of the [place] [employer]. 6Interpretive Data: Adult reference range values reflect the clinical guidelines of the [place] [employer]. THYROID PANEL 1 2 3 Most recent to oldest [Reference Range]: 0.090 uIU/mL *LOW* (02/01/14 4:34 AM) TSH [0.360-3.740 uIU/mL] URINE AND STOOL 1 2 3 Most recent to oldest [Reference Range]: Clear (01/30/14 7:15 PM) UA Turbidity [Clear] Ltyellow *NA* (01/30/14 7:15 PM) UA Color 5.0 (01/30/14 7:15 PM) UA pH [5.0-8.0] 1.014 (01/30/14 7:15 PM) UA Spec Grav [<=1.030] 50 mg/dL *ABN* (01/30/14 7:15 PM) UA Glucose [Negative mg/dL] Negative (01/30/14 7:15 PM) UA Blood [Negative] Negative mg/dL *NA* (01/30/14 7:15 PM) UA Ketones [Negative mg/dL] Negative mg/dL (01/30/14 7:15 PM) UA Protein [Negative mg/dL] <=1.0 mg/dL *NA* (01/30/14 7:15 PM) UA Urobilinogen [0.1-1.0 mg/dL] Negative *NA* (01/30/14 7:15 PM) UA Bili [Negative] Trace *ABN* (01/30/14 7:15 PM) UA Leuk Est [Negative] Negative (01/30/14 7:15 PM) UA Nitrite [Negative] 2 /HPF (01/30/14 7:15 PM) UA WBC [0-5 /HPF] 1 /HPF (01/30/14 7:15 PM) UA RBC [0-2 /HPF] Occasional /HPF *NA* (01/30/14 7:15 PM) UA Bacteria [None Seen /HPF] Occasional /LPF *NA* (01/30/14 7:15 PM) UA Sq Epi [Few /LPF] HEMATOLOGY 1 2 3 Most recent to oldest [Reference Range]: 5.7 K/CMM (02/01/14 4:34 AM) 6.1 K/CMM (01/31/14 5:32 AM) 7.8 K/CMM (01/30/14 3:56 PM) WBC [3.7-10.4 K/CMM] 2.95 M/CMM *LOW* (02/01/14 4:34 AM) 3.21 M/CMM *LOW* (01/31/14 5:32 AM) 3.57 M/CMM *LOW* (01/30/14 3:56 PM) RBC [4.20-5.40 M/CMM] 10.1 g/dL *LOW* (02/01/14 4:34 AM) 11.1 g/dL *LOW* (01/31/14 5:32 AM) 12.1 g/dL (01/30/14 3:56 PM) Hgb [12.0-16.0 g/dL] 29.8 % *LOW* (02/01/14 4:34 AM) 33.2 % *LOW* (01/31/14 5:32 AM) 36.1 % (01/30/14 3:56 PM) Hct [36.0-48.0 %] 101.3 fL *HI* (02/01/14 4:34 AM) 103.7 fL *HI* (01/31/14 5:32 AM) 101.0 fL *HI* (01/30/14 3:56 PM) MCV [81.0-99.0 fL] 34.2 pg *HI* (02/01/14 4:34 AM) 34.7 pg *HI* (01/31/14 5:32 AM) 34.0 pg *HI* (01/30/14 3:56 PM) MCH [27.0-31.0 pg] 33.8 g/dL (02/01/14 4:34 AM) 33.4 g/dL (01/31/14 5:32 AM) 33.6 g/dL (01/30/14 3:56 PM) MCHC [32.0-36.0 g/dL] 14.0 % (02/01/14 4:34 AM) 14.7 % *HI* (01/31/14 5:32 AM) 14.1 % (01/30/14 3:56 PM) RDW [11.5-14.5 %] 122 K/CMM *LOW* (02/01/14 4:34 AM) 178 K/CMM (01/31/14 5:32 AM) 266 K/CMM (01/30/14 3:56 PM) Platelet [133-450 K/CMM] 9.3 fL (02/01/14 4:34 AM) 8.7 fL (01/31/14 5:32 AM) 8.7 fL (01/30/14 3:56 PM) MPV [7.4-10.4 fL] 63.3 % (02/01/14 4:34 AM) 62.9 % (01/31/14 5:32 AM) 66.1 % (01/30/14 3:56 PM) Segs [45.0-75.0 %] 24.3 % (02/01/14 4:34 AM) 26.2 % (01/31/14 5:32 AM) 21.5 % (01/30/14 3:56 PM) Lymphocytes [20.0-40.0 %] 5.5 % (02/01/14 4:34 AM) 5.8 % (01/31/14 5:32 AM) 6.3 % (01/30/14 3:56 PM) Monocytes [2.0-12.0 %] 5.5 % *HI* (02/01/14 4:34 AM) 4.3 % *HI* (01/31/14 5:32 AM) 5.4 % *HI* (01/30/14 3:56 PM) Eosinophils [0.0-4.0 %] 1.4 % *HI* (02/01/14 4:34 AM) 0.8 % (01/31/14 5:32 AM) 0.7 % (01/30/14 3:56 PM) Basophils [0.0-1.0 %] 3.6 K/CMM (02/01/14 4:34 AM) 3.8 K/CMM (01/31/14 5:32 AM) 5.2 K/CMM (01/30/14 3:56 PM) Segs-Bands # [1.5-8.1 K/CMM] 1.4 K/CMM (02/01/14 4:34 AM) 1.6 K/CMM (01/31/14 5:32 AM) 1.7 K/CMM (01/30/14 3:56 PM) Lymphocytes # [1.0-5.5 K/CMM] 0.3 K/CMM (02/01/14 4:34 AM) 0.4 K/CMM (01/31/14 5:32 AM) 0.5 K/CMM (01/30/14 3:56 PM) Monocytes # [0.0-0.8 K/CMM] 0.3 K/CMM (02/01/14 4:34 AM) 0.3 K/CMM (01/31/14 5:32 AM) 0.4 K/CMM (01/30/14 3:56 PM) Eosinophils # [0.0-0.5 K/CMM] 0.1 K/CMM (02/01/14 4:34 AM) 0.0 K/CMM (01/31/14 5:32 AM) 0.1 K/CMM (01/30/14 3:56 PM) Basophils # [0.0-0.2 K/CMM] Medications Administered During Your Visit No data available for this section Immunizations No data available for this section Social History Social History Type Response Alcohol Use: Never Smoking Status Light tobacco smoker, Exposure to Tobacco Smoke None, Cigarette Smoking Last 365 Days No, Reg Smoking Cessation Counseling No
[2019-06-16 19:37] LABS: BASOPHILS # (AUTO) 0.1 (0.0-0.1); BASOPHILS % 0.7 % (0.0-1.0); EOSINOPHILS # (AUTO) 0.7 (0.0-0.4); EOSINOPHILS % 6.2 % (0.0-6.0); HEMATOCRIT 43.4 % (34.2-44.1); HEMOGLOBIN 14.4 g/dL (12.0-16.0); LYMPHOCYTES # (AUTO) 2.2 (1.0-3.2); LYMPHOCYTES % 20.8 % (18.0-39.1); MEAN CORPUSCULAR HEMOGLOBIN 32.5 pg (28-32); MEAN CORPUSCULAR HGB CONC 33.2 g/dL (31-35); MONOCYTES # (AUTO) 0.4 (0.2-0.8); NEUTROPHILS # (AUTO) 7.1 (2.1-6.9); NEUTROPHILS % 67.9 % (38.7-80.0); PLATELET COUNT 280 x10e3/uL (140-360); RED BLOOD COUNT 4.43 x10e6/uL (3.6-5.1); RED CELL DISTRIBUTION WIDTH 12.4 % (11.7-14.4)
[2019-06-16 19:46] LABS: INR 1.26; PROTHROMBIN TIME 16.4 seconds (11.9-14.5)
[2019-06-16 19:56] LABS: ALANINE AMINOTRANSFERASE 26 IU/L (0-55); ALBUMIN 4.1 g/dL (3.5-5.0); ALBUMIN/GLOBULIN RATIO 1.1 (0.8-2.0); ALKALINE PHOSPHATASE 61 IU/L (40-150); ANION GAP 18.8 mmol/L (8-16); BLOOD UREA NITROGEN 17 mg/dL (7-26); BUN/CREATININE RATIO 13 (6-25); CALCIUM 10.6 mg/dL (8.4-10.2); CARBON DIOXIDE 24 mmol/L (22-29); CHLORIDE 102 mmol/L (98-107); CREATINE KINASE 98 IU/L (29-168); CREATININE, SERUM 1.35 mg/dL (0.57-1.11); EST GLOMERULAR FILTRATION RATE 39 ML/MIN (60-); GLUCOSE 138 mg/dL (74-118); POTASSIUM 3.8 mmol/L (3.5-5.1); SODIUM 141 mmol/L (136-145)
[2019-06-16] MEDS ORDERED: SODIUM CHLORIDE 0.9% 1000ML 1,000 ML IV ONE (21:30)
--- NOTE | 2019-06-16 22:05 | Diagnostic Imaging Report ---
EXAMINATION: CHEST SINGLE (NOT PORTABLE) INDICATION: Short of breath COMPARISON: None FINDINGS: AP view TUBES and LINES: None. LUNGS: Lungs are well inflated. Lungs are clear. There is mild prominence of the central pulmonary vasculature, consistent with pulmonary venous congestion. PLEURA: No pleural effusion or pneumothorax. HEART AND MEDIASTINUM: The cardiomediastinal silhouette is unremarkable. There are atherosclerotic calcifications within the aorta. BONES AND SOFT TISSUES: No acute osseous lesion. Soft tissues are unremarkable. UPPER ABDOMEN: No free air under the diaphragm. IMPRESSION: Mild central pulmonary vascular congestion. Signed by: Gregor Prakash DO on 06/16/2019 10:01 PM
[2019-06-16] MEDS ORDERED: SODIUM CHLORIDE 0.9% 50ML 50 ML ONE (22:47)
[2019-06-16] MEDS ORDERED: IOPAMIDOL 370 MG/ML 200 ML INFUS..BTL INJ ONE (22:47)
--- NOTE | 2019-06-17 00:40 | Diagnostic Imaging Report ---
EXAM: CT Chest WITH contrast PULMONARY EMBOLISM PROTOCOL. 06/16/2019 7:18 PM INDICATION: Short of breath, history of DVT COMPARISON: None TECHNIQUE: Chest was scanned utilizing a multidetector helical scanner from the lung apex through the level of the adrenal glands without administration of IV contrast, scan was performed in pulmonary arterial phase. Thin slices were generated. Coronal and sagittal reformations were obtained. Routine protocol was performed. IV CONTRAST: 100 mL of Isovue 370 COMPLICATIONS: None RADIATION DOSE: Total DLP: 585 mGy*cm Estimated effective dose: (DLP x 0.014 x size factor) mSv CTDIvol has been reviewed. It is below the limits set by the Radiation Protocol Committee (RPC). Dose modulation, iterative reconstruction, and/or weight based adjustment of the mA/kV was utilized to reduce the radiation dose to as low as reasonably achievable. FINDINGS: LINES/ TUBES: None. LUNGS AND AIRWAYS: Calcific granuloma in the left lower lobe Airways are normal. Mild scarring and atelectasis in the lower peripheral lungs. PLEURA: The pleural spaces are clear. HEART AND MEDIASTINUM: The thyroid gland is normal. No mediastinal, hilar or axillary lymphadenopathy. Calcified mediastinal nodes. The heart is normal in size. There is no pericardial effusion. There are atherosclerotic calcifications in the aorta and coronary arteries. The main pulmonary artery is nondilated. Mitral annular calcifications. Slight prominence of the central pulmonary arteries. UPPER ABDOMEN: Unremarkable. BONES: There are degenerative changes in the thoracic spine. SOFT TISSUES: Unremarkable. IMPRESSION: 1. No pulmonary embolism. 2. Coronary artery calcific atherosclerotic disease. 3. Mild central pulmonary vascular congestion. Signed by: Gregor Prakash DO on 06/17/2019 12:37 AM
[2019-06-17 01:10] VITALS: BP 135/76
== END 2019-06-17 01:21 | disposition home or self-care (01) ==
LOC: ER 19:03
DX: R06.09 Other forms of dyspnea (principal); R09.89 Other specified symptoms and signs involving the circulatory and respiratory systems; Z86.718 Personal history of other venous thrombosis and embolism
CPT/HCPCS: 36415; 71045; 71260; 80053; 82550; 82553; 83880; 84484; 85025; 85610; 85730; 93005; 99284; J7030; Q9967

== ENCOUNTER 2019-06-21 14:23 | Observation (INO) | payer MEDICARE ==
[~2019-06-21] VITALS: Ht 149.9 cm; Wt 97.5 kg
--- OUTSIDE RECORDS SUMMARY | 2019-06-21 14:26 | XMS REPORT ---
Author Author [facility] Address Unknown Phone Unavailable Care Team Providers Care Primary Education Professor Name Role Phone Amor NEWMAN Unavailable Unavailable Problems This patient has no known problems. Allergies, Adverse Reactions, Alerts This patient has no known allergies or adverse reactions. Medications This patient has no known medications. Results Test Description Test Time Test Comments Text Results Atomic Results Result Comments CT CHEST W 2019-06-17 00:25:00 [place] [address] Patient Name: EZIO CARDENAS MR #: [id number] : 1950 Age/Sex: 69/F Req #: [id number] Adm Physician: Ordered by: NERY NEWMAN MD Report #: [id number] Location: ER Room/Bed: Procedure: [id number] CT/CT CHEST W Exam Date: 06/16/19 Exam Time: 2300 REPORT STATUS: Signed EXAM: CT Chest WITH contrast PULMONARY EMBOLISM PROTOCOL. 06/16/2019 7:18 PM INDICATION: Short of breath, history of DVT COMPARISON: None TECHNIQUE: Chest was scanned utilizing a multidetector helical scanner from the lung apex through the level of the adrenal glands without administration of IV contrast, scan was performed in pulmonary arterial phase. Thin slices were generated. Coronal and sagittal reformations were obtained. Routine protocol was performed. IV CONTRAST: 100 mL of Isovue 370 COMPLICATIONS: None RADIATION DOSE: Total DLP: 585 mGy*cm Estimated effective dose: (DLP x 0.014 x size factor) mSv CTDIvol has been reviewed. It is below the limits set by the Radiation Protocol Committee (RPC). Dose modulation, iterative reconstruction, and/or weight based adjustment of the mA/kV was utilized to reduce the radiation dose to as low as reasonably achievable. FINDINGS: LINES/ TUBES: None. LUNGS AND AIRWAYS: Calcific granuloma in the left lower lobe Airways are normal. Mild scarring and atelectasis in the lower peripheral lungs. PLEURA: The pleural spaces are clear. HEART AND MEDIASTINUM: The thyroid gland is normal. No mediastinal, hilar or axillary lymphadenopathy. Calcified mediastinal nodes. The heart is normal in size. There is no pericardial effusion. There are atherosclerotic calcifications in the aorta and coronary arteries. The main p ulmonary artery is nondilated. Mitral annular calcifications. Slight prominence of the central pulmonary arteries. UPPER ABDOMEN: Unremarkable. BONES: There are degenerative changes in the thoracic spine. SOFT TISSUES: Unremarkable. IMPRESSION: 1. No pulmonary embolism. 2. Coronary artery calcific atherosclerotic disease. 3. Mild central pulmonary vascular congestion. Signed by: Gregor Prakash DO on 06/17/2019 12:37 AM Dictated By: GREGOR PRAKASH DO Transcribed By: HASEEB on 07/26 COPY TO: NERY NEWMAN MD CHEST SINGLE (NOT PORTABLE) 2019-06-16 21:48:00 [place] [address] Patient Name: EZIO CARDENAS MR #: [id number] : 1950 Age/Sex: 69/F Req #: [id number] Adm Physician: Ordered by: NERY NEWMAN MD Report #: [id number] Location: Room/Bed: Procedure: [id number] DX/CHEST SINGLE (NOT PORTABLE) Exam Date: 06/16/19 Exam Time: 2024 REPORT STATUS: Signed EXAMINATION: CHEST SINGLE (NOT PORTABLE) INDICATION: Short of breath COMPARISON: None FINDINGS: AP view TUBES and LINES: None. LUNGS: Lungs are well inflated. Lungs are clear. There is mild prominence of the central pulmonary vasculature, consistent with pulmonary venous congestion. PLEURA: No pleural effusion or pneumothorax. HEART AND MEDIASTINUM: The cardiomediastinal silhouette is unremarkable. There are atherosclerotic calcifications within the aorta. BONES AND SOFT TISSUES: No acute osseous lesion. Soft tissues are unremarkable. UPPER ABDOMEN: No free air under the diaphragm. IMPRESSION: Mild central pulmonary vascular congestion. Signed by: Gregor Prakash DO on 06/16/2019 10:01 PM Dictated By: GREGOR PRAKASH DO 00 Transcribed By: HASEEB on 06/16/192200 COPY TO: NERY NEWMAN MD
--- NOTE | 2019-06-21 16:38 | Diagnostic Imaging Report ---
EXAMINATION: Head CT HISTORY: Alteration of consciousness, dizziness, shaking for the last week COMPARISON: None. TECHNIQUE: Multidetector axial images were obtained without contrast from the foramen magnum to the vertex . The images were reconstructed using brain and bone algorithms. Thin section brain images were reformatted into coronal and sagittal planes. Image quality: Motion/streaking artifact limits the evaluation of the skull base and posterior cranial fossa. Dose modulation, iterative reconstruction, and/or weight based adjustment of the mA/kV was utilized to reduce the radiation dose to as low as reasonably achievable. FINDINGS: Parenchyma: 1. No abnormal densities. 2. No mass or hemorrhage. No CT evidence of acute territorial vascular insult. Extra-axial spaces:No abnormal density. No extra-axial fluid collections Brain volume: Normal for age. Ventricles: No hydrocephalus or displacement. Arteries: No density suggestive of thrombus. Dural sinuses: No abnormal density. Extra-axial spaces: No abnormal density. Foramen magnum: No mass, Chiari malformation, or basilar invagination. Sella: No obvious mass. Paranasal/mastoid sinuses: Imaged portions unremarkable. Skull/Scalp: No lytic or blastic lesions. No fractures. IMPRESSION: Normal head CT. Signed by: Dr. Pauline Tamez M.D. on 06/21/2019 4:35 PM
[2019-06-21 17:16] LABS: BASOPHILS # (AUTO) 0.1 (0.0-0.1); BASOPHILS % 0.5 % (0.0-1.0); EOSINOPHILS # (AUTO) 0.1 (0.0-0.4); EOSINOPHILS % 0.7 % (0.0-6.0); HEMATOCRIT 40.5 % (34.2-44.1); HEMOGLOBIN 13.2 g/dL (12.0-16.0); LYMPHOCYTES # (AUTO) 1.1 (1.0-3.2); LYMPHOCYTES % 10.4 % (18.0-39.1); MEAN CORPUSCULAR HGB CONC 32.6 g/dL (31-35); MEAN CORPUSCULAR VOLUME 98.3 fL (81-99); MONOCYTES # (AUTO) 0.5 (0.2-0.8); MONOCYTES % 4.5 % (4.4-11.3); NEUTROPHILS # (AUTO) 8.8 (2.1-6.9); NEUTROPHILS % 83.2 % (38.7-80.0); PLATELET COUNT 258 x10e3/uL (140-360); RED BLOOD COUNT 4.12 x10e6/uL (3.6-5.1); RED CELL DISTRIBUTION WIDTH 12.3 % (11.7-14.4)
--- NOTE | 2019-06-21 17:38 | Diagnostic Imaging Report ---
EXAMINATION: CHEST SINGLE (PORTABLE) INDICATION: ^ERMD ORDER ^[id number] ^1621 ^Y COMPARISON: CT chest 06/16/2019 and chest radiograph 06/16/2019 FINDINGS: AP view TUBES and LINES: None. LUNGS: Lungs are well inflated. Unchanged mild central pulmonary vascular congestion. No new consolidations. PLEURA: No pleural effusion or pneumothorax. HEART AND MEDIASTINUM: Mild enlargement of the cardiac silhouette, unchanged. BONES AND SOFT TISSUES: No acute osseous lesion. Soft tissues are unremarkable. UPPER ABDOMEN: No free air under the diaphragm. IMPRESSION: Stable mild central pulmonary vascular congestion. Signed by: Dr. Claudia Macedo M.D. on 06/21/2019 5:34 PM
[2019-06-21 17:40] LABS: ALBUMIN 3.9 g/dL (3.5-5.0); ANION GAP 19.3 mmol/L (8-16); CALCIUM 11.3 mg/dL (8.4-10.2); CREATININE, SERUM 1.22 mg/dL (0.57-1.11); MAGNESIUM 1.5 MG/DL (1.3-2.1); POTASSIUM 4.3 mmol/L (3.5-5.1)
[2019-06-21 18:20] LABS: BILIRUBIN,URINE SMALL (NEGATIVE); CLARITY,URINE SL CLOUDY (CLEAR); COLOR,URINE YELLOW (YELLOW); KETONES,URINE 1+ (NEGATIVE); LEUKOCYTE ESTERASE ,URINE TRACE (NEGATIVE); NITRITE,URINE NEGATIVE (NEGATIVE); PROTEIN,URINE DIPSTICK TRACE (NEGATIVE); URINE UROBILINOGEN 0.2 mg/dL (0.2 - 1)
[2019-06-21 18:38] LABS: RBC,URINE 0-5 /HPF (0-5); WBC,URINE (MAN) 0-5 /HPF (0-5)
[2019-06-21 18:39] LABS: BACTERIA,URINE FEW /HPF; EPITHELIAL CELLS,URINE MODERATE /LPF
[2019-06-21] MEDS ORDERED: DEXTROSE 50% SYRINGE 50 ML IV PRN (19:30)
[2019-06-21] MEDS ORDERED: SODIUM CHLORIDE 0.9% 500ML 500 ML IV ONE (19:30)
[2019-06-21] MEDS ORDERED: SODIUM CHLORIDE 0.9% 1000ML 1,000 ML IV ONE (19:30)
[2019-06-21 21:00] VITALS: BP 115/65
[2019-06-21] MEDS: INSULIN LISPRO 100 UNIT/1 ML 3ML VIAL SQ SCH (21:00)
--- NOTE | 2019-06-21 21:00 | NUR ---
patient is a new admit that arrived via stretcher patient is awake and talking. patient has been assisted into the bed. bed is in the lowest position and call light is within reach. will continue to monitor patient.
[2019-06-21 21:44] VITALS: BP 115/65
[2019-06-21 21:49] LABS: INR 1.42; PROTHROMBIN TIME 17.9 seconds (11.9-14.5)
[2019-06-21 21:50] LABS: PARTIAL THROMBOPLASTIN TIME 31.3 seconds (23.8-35.5)
[2019-06-21] MEDS ORDERED: RIVAROXABAN 20 MG TABLET PO SCH (22:14)
[2019-06-21] MEDS ORDERED: LISINOPRIL-HCT1 EACH PO (23:50)
[2019-06-21] MEDS ORDERED: GLIPIZIDE5 MG PO (23:50)
[2019-06-21] MEDS ORDERED: VITAMIN D31000 UNIT PO (23:50)
[2019-06-21] MEDS ORDERED: ALLOPURINOL100 MG PO (23:50)
[2019-06-21] MEDS ORDERED: GABAPENTIN100 MG PO (23:50)
[2019-06-22] VITALS: BP 118/63
[2019-06-22 03:00] LABS: CREATINE KINASE MB 4.7 ng/mL (0-5.0)
[2019-06-22 04:00] VITALS: BP 95/55
[2019-06-22 06:34] LABS: BASOPHILS # (AUTO) 0.1 (0.0-0.1); BASOPHILS % 0.7 % (0.0-1.0); EOSINOPHILS # (AUTO) 0.2 (0.0-0.4); EOSINOPHILS % 2.8 % (0.0-6.0); HEMATOCRIT 40.1 % (34.2-44.1); HEMOGLOBIN 13.2 g/dL (12.0-16.0); LYMPHOCYTES # (AUTO) 1.8 (1.0-3.2); LYMPHOCYTES % 25.6 % (18.0-39.1); MEAN CORPUSCULAR HEMOGLOBIN 32.2 pg (28-32); MEAN CORPUSCULAR HGB CONC 32.9 g/dL (31-35); MEAN CORPUSCULAR VOLUME 97.8 fL (81-99); MONOCYTES # (AUTO) 0.6 (0.2-0.8); MONOCYTES % 7.8 % (4.4-11.3); NEUTROPHILS # (AUTO) 4.5 (2.1-6.9); NEUTROPHILS % 62.5 % (38.7-80.0); PLATELET COUNT 239 x10e3/uL (140-360); RED CELL DISTRIBUTION WIDTH 12.3 % (11.7-14.4)
--- NOTE | 2019-06-22 06:38 | NUR ---
report given to day nurse. patient is resting comfortably in bed. bed is in lowest position and call light is within reach.
[2019-06-22 07:03] LABS: ALBUMIN 3.2 g/dL (3.5-5.0); ANION GAP 12.8 mmol/L (8-16); CALCIUM 9.7 mg/dL (8.4-10.2); CHOL/HDL RATIO 3.5 (3.0-3.6); CREATININE, SERUM 1.1 mg/dL (0.57-1.11); POTASSIUM 3.8 mmol/L (3.5-5.1)
[2019-06-22] MEDS: INSULIN LISPRO 100 UNIT/1 ML 3ML VIAL SQ SCH ×2 (07:30→11:30)
[2019-06-22] MEDS ORDERED: CALCIUM 600 +1 EAC2 PO (08:20)
[2019-06-22 08:46] VITALS: BP 125/51
[2019-06-22 08:50] VITALS: BP 125/51
--- NOTE | 2019-06-22 11:29 | NUR ---
ORDERS TO ARRANGE HOME HEALTH FOR [facility] AND PT/OT CHOICE LETTER SIGNED FOR [employer] AND PLACED IN CHART COPY OF CHOICE LETTER WITH MY BUSINESS CARD GIVEN TO PT PATIENT ADDRESS WHERE SERVICE WILL BE RECEIVED: [id number] [place] [id number] PATIENT CONTACT NUMBER: [phone] NAME OF HOME HEALTH COMPANY: [employer]. TELEPHONE/FAX NUMBER OF COMPANY: [phone] ADDRESS OF COMPANY: [address] [place] [address], [facility] [address] [place] [address] SERVICES TO RECEIVE: [facility] EVAL HOME PT/OT EVAL ANTICIPATED DATE SERVICES WILL BEGIN: Sunday06/24/19 PLEASE CALL THE COMPANY ABOVE IF YOU HAVE NOT RECEIVED A CALL TO SCHEDULE A HOME VISIT WITHIN 24 HRS OF DISCHARGE
[2019-06-22 12:21] LABS: CREATINE KINASE MB 5.1 ng/mL (0-5.0)
[2019-06-22 12:26] VITALS: BP 103/60
--- NOTE | 2019-06-22 12:37 | NUR ---
Right hand IV discontinued. No signs of infiltration noted. 2x2 gauze and tape placed. Taken via wheelchair by PCT to personal car. Accompanied by sister. AAOX4 to time,person, place, situation. Respirations even and unlabored. Discharge instructions and all personal belongings taken with patient. No rx available at this time.
--- NOTE | 2019-06-22 13:28 | Consultation ---
DATE OF CONSULTATION: 06/22/2019 Neurology Consult Note HISTORY OF PRESENT ILLNESS: Ms. Espinoza is a 69-year-old right-hand dominant woman with past medical history significant for hypertension, hyperlipidemia, diabetes mellitus, complicated by peripheral neuropathy, peripheral arterial disease, and a deep venous thrombosis previously diagnosed in the right leg, admitted to [facility] under observation status on June 21, 2019, for evaluation and treatment of multiple symptoms. Beginning approximately 2 weeks ago, Ms. Espinoza began to experience weakness, affecting both legs. When I asked to further describe this weakness, Ms. Espinoza describes poor balance with impairment of gait, resulting in one fall without injury within the past 2 weeks. She describes the onset of the aforementioned symptoms as gradual. Ms. Espinoza does not report numbness, burning pain, tingling, pins and needles sensation, or other uncomfortable sensation affecting the feet. However, the patient does take gabapentin 300 mg by mouth daily. Beginning approximately 2 weeks ago, the patient noted a tremor affecting her right hand. The tremor is present with action, but not at rest. The only daily activity affected by the tremor is the patient's writing. Ms. Espinoza states she previously had "a very nice hand writing," but now her handwriting "looks like chicken scratch." The patient does not report worsening of the tremor with either caffeine or psychosocial stress. Ms. Espinoza does not consume alcohol, so it is unknown if the tremor is improved with alcohol. The patient does have a sister with Parkinson's disease. Over the past 2 weeks, Ms. Espinoza has noticed a disturbance in speech. She further describes it as "knowing what I Wanna say, but not being able to get the words out." The patient reports this disturbance in speech, began gradually and has progressively worsened over the past 1 to 2 weeks. However, she reports her speech seems "much much better," at present. Other symptoms described by the patient include intermittent headaches, and chronic low back and hip pain. On June 21, 2019, Ms. Espinoza was brought to the emergency center at [facility] by family members for further evaluation of her symptoms. Upon arrival in the emergency center, the patient was afebrile with a blood pressure of 138/68 mmHg and a pulse of 85 beats per minute. The patient's neurological examination was documented as being nonfocal. A Starla, scale score of 15 was given. An NIH stroke scale score of 0 was given. While in the emergency center, CT of the brain without contrast was performed. This study did not reveal evidence of recent large territorial ischemia or hemorrhage. Ms. Espinoza was subsequently admitted to [facility] under observation status for further evaluation of the aforementioned symptoms. REVIEW OF SYSTEMS: Chronic bilateral hip pain, possible expressive aphasia, weakness in both legs, which is further described as unsteadiness and feeling off balance, poor balance with impairment of gait, tremor, chronic low back pain, intermittent headaches, recent fall without injury. PAST MEDICAL HISTORY: Hypertension, hyperlipidemia, diabetes mellitus complicated by peripheral neuropathy, possible reactive airway disease, thyroid disease, rheumatoid arthritis, chronic kidney disease, stage unknown; peripheral arterial disease, deep venous thrombosis in the right leg. PAST SURGICAL HISTORY: Appendectomy, D and C, right breast lumpectomy x2 (benign), surgery on the right arm, status post trauma; right bunionectomy, removal of a corn between two toes. PAST HOSPITALIZATIONS: Surgeries/procedures as listed. FAMILY MEDICAL HISTORY: The patient's paternal and maternal grandparents are , their medical histories are unknown. Ms. Espinoza's father is from a stroke. Her mother is from coronary artery disease with a myocardial infarction. Ms. Espinoza has one sister, who is alive; this sister has experienced two strokes and has Parkinson disease. SOCIAL HISTORY: Ms. Espinoza is . She is retired. The patient does not report current or prior tobacco, alcohol, or recreational drug use. HOME MEDICATIONS: Allopurinol 100 mg by mouth daily, amlodipine 5 mg by mouth daily, atenolol 25 mg by mouth daily, calcium with vitamin D two capsules by mouth daily, vitamin D3 two capsules by mouth daily, folic acid 1 mg by mouth daily, gabapentin 300 mg by mouth daily, glipizide 2.5 mg by mouth daily, levothyroxine 100 mcg by mouth daily, lisinopril/hydrochlorothiazide dose unknown two tablets by mouth daily, lovastatin 20 mg by mouth daily, methotrexate 2.5 mg by mouth daily, Protonix 40 mg by mouth daily, Xarelto 20 mg by mouth daily, and spironolactone 50 mg by mouth daily. HOSPITAL MEDICATIONS: Insulin sliding scale, Xarelto. ALLERGIES: PENICILLIN. NO KNOWN FOOD ALLERGIES. NO KNOWN ALLERGIES TO LATEX. NO KNOWN ALLERGIES TO IODINE OR OTHER CONTRAST MATERIALS. PHYSICAL EXAMINATION: VITAL SIGNS: Height 59 inches, weight 215 pounds, BMI 43.4 kg/m2, blood pressure 121/51 mmHg, pulse 69 beats per minute, respiratory rate 20 breaths per minute, and oxygen saturation 92% on room air. GENERAL: The patient is awake and alert, does not appear distressed. Morbidly obese. HEENT: Normocephalic, atraumatic. Pupils are equal, round, and reactive to light. Moist mucous membranes. NECK: Supple. No appreciable thyromegaly. No appreciable carotid bruits. CARDIOVASCULAR: S1, S2, mildly tachycardic, regular rhythm. No murmurs, rubs, or gallops. RESPIRATORY: Clear to auscultation bilaterally. No wheezes, rhonchi, or rales. EXTREMITIES: The skin is warm and dry. No clubbing, cyanosis, or edema. The posterior tibial and dorsalis pedis pulses are 1+ and symmetric. SKIN: No rashes or lesions. NEUROLOGIC: Memory/Attention: The patient is awake and alert, oriented to person, place, time, and situation. Cranial Nerves: Cranial nerve I - not tested. Cranial nerve II, III, IV, and - pupils are equal and round, reactive briskly to light (from 4 mm to 2 mm). Extraocular movements are intact. No nystagmus. Cranial nerve V - sensation to light touch and pinprick is intact in the bilateral V1 through V3 distributions. Strength in the temporalis and masseter muscles is within normal limits. Cranial nerve VII - the face is symmetric as are all facial movements. Strength is within normal limits. Cranial nerve VIII - hearing is intact to finger rub bilaterally. Cranial nerve IX, X - the soft palate elevates equally and symmetrically. Cranial nerve XI - normal strength of the bilateral sternocleidomastoid and trapezius muscles. Cranial nerve XII - the tongue protrudes midline and moves symmetrically from [id number]. Strength: Bulk is normal. Strength is 5/5 in the bilateral deltoids, biceps, triceps, wrist flexors and extensors, finger flexors and extensors, and intrinsic hand muscles, hip flexors, knee flexors and extensors, ankle dorsiflexion and plantar flexion, and intrinsic foot muscles. Tone is normal. DTRs: Deep tendon reflexes are 1+ and symmetric at the triceps and biceps. Deep tendon reflexes are trace and symmetric at the brachioradialis. Deep tendon reflexes are absent and symmetric at the patellas and Achilles. Plantar responses are flexor bilaterally. Sensation: Sensation is decreased to light touch and pinprick in a stocking distribution. Vibratory sensation is decreased at the toes. Cerebellar: [id number] and heel-hernandez movements are intact without dysmetria or other impairment. Gait: Deferred. Speech: Spontaneous speech is normal without appreciable dysarthria or aphasia. Repetition is intact. Involuntary movements: A moderate frequency, moderate amplitude tremor affecting the right hand only is observed. The tremor waxes and wanes in intensity. Distractible. Pronator Drift: None. LABORATORY DATA: A comprehensive metabolic panel is significant for an estimated GFR of 49, total protein of 6.3, and albumin of 3.2. Cardiac enzymes are negative x2. The B-natriuretic peptide 27.6. Total cholesterol 121, triglycerides 90, LDL cholesterol 68, HDL cholesterol 35. The CBC with differential and platelets are unremarkable. PT 17.9, INR 1.42, PTT 31.3. A urinalysis reveals slightly cloudy urine with trace protein, 1+ ketones, small bilirubin, trace leukocyte esterase, 0 to 5 white blood cells, moderate epithelial cells, and few bacteria. DIAGNOSTIC STUDIES: Electrocardiogram on 06/21/2019: Normal sinus rhythm at 85 beats per minute. Chest x-ray 06/21/2019: Stable mild central pulmonary vascular congestion. CT of the brain without contrast on 06/21/2019: On my review, there is no evidence of recent or remote large territorial ischemia, hemorrhage, mass, or mass effect. Cerebral volumes are appropriate for age. There are no findings suggestive of chronic small vessel ischemic disease. ASSESSMENT AND PLAN: Ms. Espinoza is a 69-year-old right-hand dominant woman with an extensive past medical history, admitted to [facility] under observation status on June 21, 2019, for evaluation of multiple symptoms. At present, the only significant findings on her neurological examination are diminished deep tendon reflexes in the legs, decreased sensation to light touch, pinprick, and vibration in the feet and legs, and a moderate frequency, moderate amplitude tremor of the right hand home of the right hand only, which waxes and wanes in intensity and is distractible. The patient's laboratory data and other diagnostic studies have been reviewed and are documented above. 1. Weakness, which is further described as poor balance and impairment of gait with a recent fall: The symptoms are secondary to the patient's known history of peripheral neuropathy, which is probably secondary to diabetes mellitus. Ms. Espinoza does not report neuropathic pain, indicating gabapentin 300 mg by mouth daily is adequately controlling her pain. The only other recommendation would be a referral to physical therapy as an outpatient for gait and balance exercises. 2. Tremor: Neither the patient's history nor neurological examination is consistent with an organic movement disorder. No further treatment is recommended from a neurological perspective. 3. There is no evidence of expressive aphasia on the patient's neurological examination. Ms. Espinoza is noted to lose her train of thought multiple times during the evaluation. A CT of the brain does not reveal evidence of recent or remote large territorial ischemia or hemorrhage, which would cause an expressive aphasia. There is no apparent neurological cause of the patient's expressive aphasia. 4. Defer treatment of the remaining medical comorbidities to the primary and other services. 5. From a neurological perspective, Ms. Espinoza may be discharged to home. Thank you for this consultation. TIME SPENT: 50 minutes. Kizzy Lawrence MD CP/LISY /[id number] MTDD
== END 2019-06-22 12:15 | disposition home or self-care (01) ==
LOC: ER 14:23 → ERHOLD 19:43 → IMCU 21:04
DX: E11.42 Type 2 diabetes mellitus with diabetic polyneuropathy (principal); R53.1 Weakness; E78.5 Hyperlipidemia, unspecified; M06.9 Rheumatoid arthritis, unspecified; Z86.718 Personal history of other venous thrombosis and embolism; Z88.0 Allergy status to penicillin; R25.1 Tremor, unspecified; I10 Essential (primary) hypertension; Z91.81 History of falling
CPT/HCPCS: 36415 ×2; 70450; 71045; 80053 ×2; 80061; 81001; 82550 ×2; 82553 ×2; 82948 ×2; 83735; 83880; 84484 ×2; 85025 ×2; 85610; 85730; 93005; 99284; G0378 ×2; J7030; J7040

== ENCOUNTER → 2021-07-07 | Outpatient (CLI) | payer MEDICARE ==
[~2021-07-07] MED LIST changes: +ALLOPURINOL100 MG PO; +CALCIUM 600 +1 EAC2 PO; +GABAPENTIN100 MG PO; +GLIPIZIDE5 MG PO; +LISINOPRIL-HCT1 EACH PO; +VITAMIN D31000 UNIT PO
== END ==
LOC: MRI 08:36
PROVIDERS: ATTEND Family Medicine
DX: M54.2 Cervicalgia (principal)
CPT/HCPCS: 72141

== ENCOUNTER → 2022-06-16 | Day surgery (SDC) | payer MEDICARE ==
[~2022-06-16] MED LIST changes: +ASPIRIN81 MG PO; +ATORVASTATIN CA20 MG PO; +CLEOCIN HCL300 MG PO; +HYOSCYAMINE SULFATE 0.5 MG/ML INJ ONE; +LEFLUNOMIDE10 MG PO; +LIDOCAINE HCL 2% LOCAL INJ 5 ML SDV VIAL INJ ONE; +LISINOPRIL10 MG PO; +MONTELUKAST SOD10 MG PO; +SMZ TMP PO; +ZINC CHELATED50 M2 PO
[2022-06-16 16:10] VITALS: BP 122/60
== END | disposition home or self-care (01) ==
LOC: OR 12:24
PROVIDERS: ATTEND Internal Medicine Gastroenterology
DX: D64.89 Other specified anemias (principal); K29.50 Unspecified chronic gastritis without bleeding; R13.19 Other dysphagia; K21.9 Gastro-esophageal reflux disease without esophagitis; K44.9 Diaphragmatic hernia without obstruction or gangrene; K57.30 Diverticulosis of large intestine without perforation or abscess without bleeding; K64.8 Other hemorrhoids; Z71.3 Dietary counseling and surveillance; E11.9 Type 2 diabetes mellitus without complications; I10 Essential (primary) hypertension; M06.9 Rheumatoid arthritis, unspecified; E78.00 Pure hypercholesterolemia, unspecified; Z88.6 Allergy status to analgesic agent; Z88.0 Allergy status to penicillin; Z01.810 Encounter for preprocedural cardiovascular examination; Z79.02 Long term (current) use of antithrombotics/antiplatelets; Z79.82 Long term (current) use of aspirin; Z79.84 Long term (current) use of oral hypoglycemic drugs; Z79.899 Other long term (current) drug therapy; Z68.28 Body mass index [BMI] 28.0-28.9, adult; Z86.718 Personal history of other venous thrombosis and embolism; Z86.73 Personal history of transient ischemic attack (TIA), and cerebral infarction without residual deficits
CPT/HCPCS: 36415; 43239; 43450; 45378; 82948; 93005; C9113; J1980; J2001

== ENCOUNTER → 2022-07-17 | Outpatient (CLI) | payer MEDICARE ==
[~2022-07-17] MED LIST changes: -HYOSCYAMINE SULFATE 0.5 MG/ML INJ ONE; -LIDOCAINE HCL 2% LOCAL INJ 5 ML SDV VIAL INJ ONE
== END ==
LOC: DX 09:59
PROVIDERS: ATTEND Internal Medicine Gastroenterology
DX: K29.70 Gastritis, unspecified, without bleeding (principal); D64.89 Other specified anemias
CPT/HCPCS: 74250

== ENCOUNTER → 2023-03-06 | Outpatient (CLI) | payer MEDICARE ==
[~2023-03-06] MED LIST changes: +IOPAMIDOL 370 MG/ML 100 ML INFUS..BTL INJ ONE
[2023-03-06 14:05] LABS: CREATININE, SERUM 0.93 mg/dL (0.57-1.11)
== END ==
LOC: CT 13:12
PROVIDERS: ATTEND Family Medicine
DX: R06.02 Shortness of breath (principal); R22.41 Localized swelling, mass and lump, right lower limb; I10 Essential (primary) hypertension; Z86.718 Personal history of other venous thrombosis and embolism
CPT/HCPCS: 36415; 71260; 82565; 84520; 93971; Q9967

== ENCOUNTER 2025-06-01 20:05 | Inpatient (IN) | payer MEDICARE ==
[~2025-06-01] VITALS: Ht 149.9 cm; Wt 121.6 kg
[~2025-06-01 20:05] MED LIST changes: -IOPAMIDOL 370 MG/ML 100 ML INFUS..BTL INJ ONE; +METHOCARBAMOL750 MG PO; +[UNRECOGNIZED DRUG - OTHER] PO
[2025-06-01 20:10] VITALS: TEMP 99.4
[2025-06-01] MEDS ORDERED: SODIUM CHLORIDE FLUSH 10 ML SYR IV PRN (20:15)
[2025-06-01 20:35] LABS: BASOPHILS % 0.7 % (0.0-1.0); EOSINOPHILS % 3.6 % (0.0-6.0); LYMPHOCYTES % 20.9 % (18.0-39.1); MONOCYTES % 6.4 % (4.4-11.3); NEUTROPHILS % 68.0 % (38.7-80.0); RED CELL DISTRIBUTION WIDTH 13.1 % (11.7-14.4)
[2025-06-01] MEDS ORDERED: DILTIAZEM HCL VIAL 5 ML ONE (20:43)
[2025-06-01 20:50] LABS: INR 1.22
[2025-06-01 20:55] LABS: EST GLOMERULAR FILTRATION RATE 47.0 ML/MIN (>=60)
[2025-06-01] MEDS ORDERED: DILTIAZEM HCL 125 ML IV SCH (21:15)
[2025-06-01] MEDS: DILTIAZEM HCL 5 MG/ML 5 ML VIAL IV ONE (21:19)
[2025-06-01] MEDS ORDERED: IOPAMIDOL 370 MG/ML 100 ML INFUS..BTL INJ ONE (21:36)
[2025-06-01] MEDS ORDERED: SODIUM CHLORIDE FLUSH 10 ML SYR INJ PRN (23:00)
[2025-06-01] MEDS: DILTIAZEM HCL IV 5MG/ML 25 ML VIAL ONE (23:20)
[2025-06-01] MEDS: SODIUM CHLORIDE 0.9% 100 ML ONE (23:20)
[2025-06-01] MEDS: FUROSEMIDE INJ 10 MG/ML 4 ML VIAL IV ONE (23:20)
[2025-06-01] MEDS: ASPIRIN 81 MG CHEW TAB PO ONE (23:46)
[2025-06-01] MEDS: AMIODARONE HCL 150 MG/100 ML BAG IV ONE (23:47)
[2025-06-01] MEDS: MUPIROCIN 2% OINT 22 GM TUBE TOP SCH (23:47)
[2025-06-02] VITALS (22 sets, daily range): BP systolic 94–162; BP diastolic 56–133; PULSE 37–153; RESP 17–26; TEMP 96.8–99.1; O2SAT 83–100
[2025-06-02] MEDS ORDERED: AMIODARONE 900MG 500 ML IV ONE (00:03)
[2025-06-02] MEDS ORDERED: GLIPIZIDE ER2.5 MG PO (00:15)
[2025-06-02] MEDS ORDERED: DEXTROSE 50% SYRINGE 50 ML IV PRN (00:30)
[2025-06-02] MEDS ORDERED: IPRATROPIUM BROMIDE 0.02% 2.5 ML NEB NEB PRN (00:30)
[2025-06-02] MEDS ORDERED: ACETAMINOPHEN 325 MG TAB PO PRN (00:30)
[2025-06-02] MEDS ORDERED: HYDRALAZINE HCL 20 MG/ML VIAL IV PRN (00:30)
[2025-06-02] MEDS ORDERED: POLYETHYLENE GLYCOL 3350 17 GM PACK PO PRN (00:30)
[2025-06-02] MEDS ORDERED: GUAIFENESIN/DEXTROMETHORPHAN LIQD 5 ML UDC PO PRN (00:30)
[2025-06-02] MEDS ORDERED: MELATONIN 3 MG TAB PO PRN (00:30)
[2025-06-02] MEDS ORDERED: MAGNESIUM/ALUMINUM/SIMETHICONE 30 ML UDC PO PRN (00:30)
[2025-06-02] MEDS ORDERED: BUMETANIDE1 MG PO (01:29)
[2025-06-02] MEDS ORDERED: XARELTO10 MG PO (01:29)
[2025-06-02] MEDS ORDERED: LEVOTHYROXINE137 MCG PO (01:29)
[2025-06-02] MEDS ORDERED: LIPITOR20 MG PO (01:29)
[2025-06-02] MEDS ORDERED: HYDROXYZINE HCL25 MG PO (01:29)
[2025-06-02] MEDS ORDERED: PANTOPRAZOLE SO40 MG PO (01:29)
[2025-06-02] MEDS ORDERED: LISINOPRIL20 MG PO (01:29)
[2025-06-02] MEDS ORDERED: GABAPENTIN300 MG PO (01:29)
[2025-06-02] MEDS: AMIODARONE 900MG 900 MG in Premix Bag 1 BAG IV ONE (01:48)
[2025-06-02 05:21] LABS: BASOPHILS % 0.6 % (0.0-1.0); EOSINOPHILS % 2.7 % (0.0-6.0); LYMPHOCYTES % 20.9 % (18.0-39.1); MONOCYTES % 7.6 % (4.4-11.3); NEUTROPHILS % 67.7 % (38.7-80.0); RED CELL DISTRIBUTION WIDTH 12.9 % (11.7-14.4)
[2025-06-02] MEDS: Doxycycline IV 100 MG in SODIUM CHLORIDE 0.9% 100 ML IV SCH ×2 (05:36→16:37)
[2025-06-02 05:50] LABS: EST GLOMERULAR FILTRATION RATE 50.0 ML/MIN (>=60)
[2025-06-02] MEDS: MULTIVITAMINS/MINERALS TAB PO SCH (08:16)
[2025-06-02] MEDS: DOCUSATE SODIUM 100 MG CAP PO SCH (08:17)
[2025-06-02] MEDS: INSULIN REGULAR, HUMAN 100 UNIT/1 ML SQ SCH (08:18)
[2025-06-02] MEDS: RIVAROXABAN 10 MG TABLET PO SCH (08:39)
[2025-06-02] MEDS: AMIODARONE HCL 200 MG TAB PO SCH (08:39)
[2025-06-02] MEDS: ALLOPURINOL 100 MG TAB PO SCH (08:39)
[2025-06-02] MEDS: NON-FORMULARY MEDICATION (Levothyroxine Sodium 137 MCG) PO SCH (08:40)
[2025-06-02] MEDS ORDERED: IOPAMIDOL 370 MG/ML 100 ML INFUS..BTL INJ ONE (08:53)
[2025-06-02] MEDS: MAGNESIUM SULF 1GRAM/DEXTROSE 100 ML IV ONE (09:55)
[2025-06-02] MEDS: ATORVASTATIN 40 MG TAB PO SCH (20:26)
[2025-06-03] VITALS (7 sets, daily range): BP systolic 132–160; BP diastolic 65–101; PULSE 70–84; RESP 16–20; TEMP 98.1–98.6; O2SAT 95–100
[2025-06-03] MEDS: LEVOTHYROXINE SODIUM 112 MCG TAB PO SCH (06:00)
[2025-06-03] MEDS: LEVOTHYROXINE SODIUM 25 MCG TABLET PO SCH (06:00)
[2025-06-03 06:22] LABS: BASOPHILS % 0.6 % (0.0-1.0); EOSINOPHILS % 4.9 % (0.0-6.0); LYMPHOCYTES % 23.5 % (18.0-39.1); MONOCYTES % 7.1 % (4.4-11.3); NEUTROPHILS % 63.6 % (38.7-80.0); RED CELL DISTRIBUTION WIDTH 12.9 % (11.7-14.4)
[2025-06-03 06:40] LABS: EST GLOMERULAR FILTRATION RATE 48.0 ML/MIN (>=60)
[2025-06-03] MEDS ORDERED: LEVALBUTEROL HCL SOLN NEBU 0.63 MG/3 ML NEB INH PRN (09:00)
[2025-06-03] MEDS: MAGNESIUM SULFATE 2GM/50ML 50 ML IV ONE (09:22)
[2025-06-03] MEDS: POTASSIUM CHLORIDE 20 MEQ TAB CR PO ONE (09:22)
[2025-06-03] MEDS: METOPROLOL SUCCINATE 25 MG TAB XL PO SCH (09:23)
[2025-06-03] MEDS: RIVAROXABAN 10 MG TABLET PO SCH (09:23)
[2025-06-03] MEDS ORDERED: LEVALBUTEROL HCL SOLN NEBU 0.63 MG/3 ML NEB INH ONE (10:15)
[2025-06-03] MEDS: ONDANSETRON HCL INJ 2MG/ML 2ML 2 MG/ML VIAL IV PRN (11:16)
[2025-06-03] MEDS ORDERED: METOPROLOL SUCC25 MG PO (15:37)
[2025-06-03] MEDS ORDERED: AMIODARONE HCL200 MG PO (15:38)
[2025-06-03] MEDS ORDERED: DOXYCYCLINE HY100 MG PO (15:41)
== END 2025-06-03 18:15 | disposition home or self-care (01) | DRG 308 ==
LOC: ER 20:09 → MERGE 22:57 → ERHOLD 22:57 → ICU 23:24 → MED/SURG2 06-02 18:18
PROVIDERS: ADMIT Family Medicine Adult Medicine; ATTEND Family Medicine Adult Medicine
PROC: 05HY33Z Insertion of Infusion Device into Upper Vein, Percutaneous Approach (ICD-10-PCS; principal; 2025-06-02)
DX: I48.0 Paroxysmal atrial fibrillation (principal); J96.01 Acute respiratory failure with hypoxia; J81.1 Chronic pulmonary edema; Z68.43 Body mass index [BMI] 50.0-59.9, adult; N17.9 Acute kidney failure, unspecified; I27.20 Pulmonary hypertension, unspecified; E66.01 Morbid (severe) obesity due to excess calories; J45.909 Unspecified asthma, uncomplicated; M06.9 Rheumatoid arthritis, unspecified; K21.9 Gastro-esophageal reflux disease without esophagitis; E78.5 Hyperlipidemia, unspecified; G47.30 Sleep apnea, unspecified; E11.22 Type 2 diabetes mellitus with diabetic chronic kidney disease; I12.9 Hypertensive chronic kidney disease with stage 1 through stage 4 chronic kidney disease, or unspecified chronic kidney disease; N18.30 Chronic kidney disease, stage 3 unspecified; E03.9 Hypothyroidism, unspecified; D89.2 Hypergammaglobulinemia, unspecified; J98.8 Other specified respiratory disorders; Z86.711 Personal history of pulmonary embolism; Z79.01 Long term (current) use of anticoagulants; Z88.0 Allergy status to penicillin; Z88.8 Allergy status to other drugs, medicaments and biological substances; Z79.84 Long term (current) use of oral hypoglycemic drugs; Z79.890 Hormone replacement therapy; Z86.718 Personal history of other venous thrombosis and embolism; Z87.891 Personal history of nicotine dependence
CPT/HCPCS: 36415; 36569; 71045; 71260; 80053; 82550; 82948; 83036; 83735; 83880; 84443; 84484; 85025; 85610; 85730; 93005; 93306; 94760; 94799; 99252; 99285; J0696; J1938; J2405; J3475; J7050; Q9967